=== PATIENT | female | born 1960 | race Caucasian/White ===

== ENCOUNTER → 2017-11-14 | Outpatient (CLI) | payer OTHER ==
[~2017-11-14] MED LIST: APAP500 PO; ASPIRIN325 PO; COLACE100 MG PO; DOCUSATE SODIU100 MG PO; METAMUCIL PAC1 UDPKT PO; MILK OF MA2400 MG/10 PO; MOBIC15 MG PO; OXYCODONE HCL 55 MG PO; TRAMADOL 50 MG50 MG PO; XARELTO10 MG PO
== END ==
LOC: M.RAD 13:42
DX: Z12.31 Encounter for screening mammogram for malignant neoplasm of breast (principal)